=== PATIENT | male | born 1995 | race Caucasian/White ===

== ENCOUNTER 2018-01-06 21:45 | Emergency (ER) | payer MEDICAID ==
[~2018-01-06] VITALS: Ht 182.9 cm; Wt 122.5 kg
[2018-01-06 22:27] VITALS: Ht 182.9 cm; Wt 122.5 kg
[2018-01-07 01:40] VITALS: BP 128/61
== END 2018-01-07 01:40 | disposition home or self-care (01) ==
LOC: ED 21:45
DX: S43.101A Unspecified dislocation of right acromioclavicular joint, initial encounter (principal); W01.0XXA Fall on same level from slipping, tripping and stumbling without subsequent striking against object, initial encounter; Y93.89 Activity, other specified; Y92.89 Other specified places as the place of occurrence of the external cause; Y99.8 Other external cause status